=== PATIENT | male | born 1980 | race Caucasian/White ===

== ENCOUNTER 2016-08-31 13:40 | Emergency (ER) | payer OTHER | END 2016-08-31 16:17 | disposition home or self-care (01) | DX: S83.207A Unspecified tear of unspecified meniscus, current injury, left knee, initial encounter (principal); W19.XXXA Unspecified fall, initial encounter ==

== ENCOUNTER 2023-03-06 04:59 | Emergency (ER) | payer OTHER ==
[2023-03-06 05:16] VITALS: BP 144/97; O2SAT 94
--- NOTE | 2023-03-06 05:19 | ED Physician Documentation ---
PD HPI OPHTHO - Stated complaint Stated Complaint: LT EYE PX - Chief complaint Chief Complaint: Heent - History obtained from History obtained from: Patient - Additional information Additional information: 42-year-old male presents for left eye pain and irritation since the middle of the night tonight. States that this happens every few years or so, he goes to the doctor, gets "numbing drops and antibiotics" and it resolves itself. He states that he has never been able to see an passenger brakeman for this issue because his eye issues cleared up by the time he is able to make a referral. Patient states that he wears contacts, his last new pair was placed "several weeks ago". He states that he does not take his contacts out and wears them 17/02. Review of Systems Constitutional: denies: Fever, Chills, Myalgias Eyes: reports: Irritation. denies: Loss of vision, Decreased vision, Photophobia, Discharge Respiratory: denies: Dyspnea, Cough, Wheezing GI: denies: Abdominal Pain, Abdominal Swelling, Vomiting PD PAST MEDICAL HISTORY - Past Medical History Cardiovascular: None Respiratory: Other Endocrine/Autoimmune: None GI: None : None HEENT: Other Psych: Anxiety Musculoskeletal: Other Derm: None - Past Surgical History Past Surgical History: Yes - Present Medications Home Medications: Ambulatory Orders Medication Instructions Recorded Confirmed Hydrocodone/Acetaminophen [Goldonna 1 each PO Q6H PRN #20 tablet 08/31/16 5-325 Tablet] Ibuprofen [Motrin] 600 mg PO TID #30 tab 08/31/16 Ofloxacin 0.3% Ophth Drops 2 drops OPTH QID #5 ml 03/06/23 [Ocuflox 0.3% Ophth Drops] - Allergies Allergies/Adverse Reactions: Allergies Allergy/AdvReac Type Severity Reaction Status Date / Time Penicillins Allergy Severe Hives Verified 03/06/23 05:15 povidone-iodine Allergy Severe Itching Verified 03/06/23 05:15 [From Betadine] - Social History Does the pt smoke?: No Smoking Status: Never smoker Does the pt drink ETOH?: Yes Does the pt have substance abuse?: No - Immunizations Immunizations are current?: Yes - POLST Patient has POLST: No PD ED PE NORMAL - Vitals Vital signs reviewed: Yes - General General: Alert and oriented X 3, No acute distress, Well developed/nourished - HEENT HEENT: Atraumatic, PERRL, EOMI, Other (Negative razia sign. Several punctate corneal abrasions middle of L eye. 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 Several areas of uptake on fluorescein stain. Negative Razia sign. No foreign bodies. Pain completely resolved with proparacaine administration. Patient was advised of his physical exam findings. Patient to be discharged with antibiotic drops to cover for Pseudomonas since he is a contact lens user. He was advised that he should not wear contacts while he is under antibiotic therapy. When he resumes wearing contacts he should follow contact lens label instructions and not wear the lenses 17/02. Ophthalmology f/u provided. Departure - Departure Disposition: 01 Home, Self Care Clinical Impression: Contact lens overwear of both eyes Corneal abrasion Qualifiers: Encounter type: initial encounter Laterality: left Qualified Code(s): S05.02XA - Injury of conjunctiva and corneal abrasion without foreign body, left eye, initial encounter Condition: Stable Instructions: ED Eye Injury Corneal Abrasion Follow-Up: Parth Cortez MD [Provider Admit Priv/Credential] - Prescriptions: Ofloxacin 0.3% Ophth Drops [Ocuflox 0.3% Ophth Drops] 2 drops OPTH QID #5 ml Forms: PCP List Discharge Date/Time: 03/06/23 05:33
== END 2023-03-06 05:33 | disposition home or self-care (01) ==
LOC: ED 04:59
DX: S05.02XA Injury of conjunctiva and corneal abrasion without foreign body, left eye, initial encounter (principal); X58.XXXA Exposure to other specified factors, initial encounter; H18.823 Corneal disorder due to contact lens, bilateral
CPT/HCPCS: 99282; 99283